=== PATIENT | female | born 1970 | race Caucasian/White ===

== ENCOUNTER 2020-08-03 22:13 | Emergency (ER) | payer MEDICAID ==
[~2020-08-03] VITALS: Ht 162.6 cm; Wt 83.9 kg
[2020-08-03] MEDS ORDERED: TIZANIDINE HCL6 MG PO (22:37)
[2020-08-03] MEDS ORDERED: ROXICODONE5 M2 PO (22:38)
[2020-08-03] MEDS ORDERED: CLONIDINE HCL0.3 M3 PO (22:38)
[2020-08-03] MEDS ORDERED: LAMICTAL5 MG PO (22:38)
[2020-08-03] MEDS ORDERED: DILAUDID1 MG/1 M1 PO (22:39)
[2020-08-03] MEDS ORDERED: IBUPROFEN 800800 M1 PO (23:15)
[2020-08-03] MEDS ORDERED: BACTRIM DS TAB1 EACH PO (23:20)
[2020-08-03 23:38] VITALS: BP 121/91
== END 2020-08-03 23:39 | disposition home or self-care (01) ==
LOC: M.ERS 22:13
DX: L02.11 Cutaneous abscess of neck (principal); R59.0 Localized enlarged lymph nodes; I10 Essential (primary) hypertension; Z79.899 Other long term (current) drug therapy